=== PATIENT | male | born 1955 | race Caucasian/White ===

== ENCOUNTER 2018-11-19 09:59 | Observation (INO) | payer OTHER, BC ==
--- NOTE | 2018-11-19 10:59 | CR ---
EXAMINATION: Two-view chest (PA and Lateral views). HISTORY: Cough. FINDINGS: The trachea is midline. The cardiomediastinal silhouette is within normal limits. No pulmonary infiltrates, effusions or pneumothorax. There is a 6 mm nodule projecting over the right upper lobe. Osseous structures appear unremarkable. IMPRESSION: 1. No acute cardiopulmonary process. 2. There is a 6 mm nodule projecting over the right upper lobe. Follow-up with a noncontrast CT may be beneficial.
[2018-11-19 11:13] LABS: CHLORIDE,CL 100 mmol/L (98-107); SODIUM,NA 135 mmol/L (136-148)
--- NOTE | 2018-11-19 11:17 | EDM.PDOC ---
ED HPI GENERAL MEDICAL PROBLEM - General Chief Complaint: General Stated Complaint: FLU Time Seen by Provider: 11/19/18 10:09 Source of Information: Reports: Patient History Limitations: Reports: No Limitations - History of Present Illness INITIAL COMMENTS - FREE TEXT/NARRATIVE: HISTORY AND PHYSICAL: History of present illness: Patient is a 63-year-old male with a history of CLL who presents to the ED today with complaints of cough, malaise, intermittent fevers, body aches, and headache x 1 week. Patient has been taking ibuprofen for symptoms. Patient was evaluated in the emergency room on 11/16/18 for these symptoms. At that time a strep, influenza and chest x-ray were done and no significant findings were noted. He was diagnosed with viral illness and supportive care measures were reviewed. He states his symptoms have not resolved. Patient does have a history of type 2 diabetes on medication. He denies any other health history. She denies nausea, vomiting, abdominal pain, pelvic pain, chest pain, orders of breath, difficulties breathing, pain with inspiration, vision changes, diaphoresis, or any other GI, , respiratory, or cardiovascular complaints. Review of systems: As per history of present illness and below otherwise all systems reviewed and negative. Past medical history: As per history of present illness and as reviewed below otherwise noncontributory. Surgical history: As per history of present illness and as reviewed below otherwise noncontributory. Social history: See social history for further information Family history: As per history of present illness and as reviewed below otherwise noncontributory. Physical exam: General: Patient is alert, oriented, and in no acute distress. He is lying comfortably on exam table. HEENT: Atraumatic, normocephalic, pupils equal and reactive bilaterally, negative for conjunctival pallor or scleral icterus, mucous membranes moist, TMs normal bilaterally, throat clear, neck supple, nontender, trachea midline. No drooling or trismus noted. No meningeal signs. No hot potato voice noted. Lungs: Clear to auscultation, breath sounds equal bilaterally, chest nontender. Heart: S1S2, regular rate and rhythm without overt murmur Abdomen: Soft, nondistended, nontender. Negative for masses or hepatosplenomegaly. Negative for costovertebral tenderness. Pelvis: Stable nontender. Genitourinary: Deferred. Rectal: Deferred. Skin: Intact, warm, dry. No lesions or rashes noted. Extremities: Atraumatic, negative for cords or calf pain. Neurovascular unremarkable. Neuro: Awake, alert, oriented. Cranial nerves II through XII unremarkable. Cerebellum unremarkable. Motor and sensory unremarkable throughout. Exam nonfocal. Notes: Diagnosed with CLL about 7-8 months ago. Patient does follow with an Oncologist , Dr Alethea Bowling, for his CLL at [facility] in [place]. He states that he just had an appointment and as follows up every 6 months due to his CLL being stable/in remission. Patient states his white blood cell count runs around 15 normally. His last blood workup was October 17, 2008. Patient states that he has not been taking any treatments for his CLL (as he is in remission) and that it has just been monitored. I did review his last CBC on October 17 which did show a white blood cell count of 15.5. His white blood cell count is significantly elevated today at 32. While obtaining blood cultures patient did threaten to walk out of the ER however, his insisting that he stays. x-ray does show no acute cardiopulmonary process. There is a 6 mm nodule in the right upper lobe, would recommend CT study for further evaluation. CT was ordered while in the ED. Discussed admission with patient and his agree to admission. Consult with Dr. Bueno was made and he is willing to admit patient. Phone Number for Dr Alethea Bowling: . CT of the chest shows a small rounded 5 mm nodule within the right upper lobe, previously measured 3-4 mm. Follow-up is recommended. [facility] Diagnostics: CBC, CMP, UA, blood cultures, CXR Therapeutics: Saline Impression: 1. History of CLL 2. Leukocytosis Plan: 1. Admit for observation Definitive disposition and diagnosis as appropriate pending reevaluation and review of above. Generalized Pain Score (Numeric/FACES): 8 - Related Data Allergies Allergy/AdvReac Type Severity Reaction Status Date / Time Penicillins Allergy Other Verified 11/19/18 10:41 Home Meds: Home Meds Atenolol 1 tab PO DAILY 10/20/14 [History] glyBURIDE [Glyburide] 1 tab PO BID 10/20/14 [History] sitaGLIPtin Phos/Metformin HCl [Janumet 50-500 MG] 1 tab PO BID 10/20/14 [ History] Aspirin 1 tab PO DAILY 11/19/18 [History] Empagliflozin [Jardiance] 1 tab PO DAILY 11/19/18 [History] Omeprazole 1 tab PO DAILY 11/19/18 [History] atorvaSTATin [Lipitor] 1 tab PO BEDTIME 11/19/18 [History] Past Medical History Cardiovascular History: Reports: High Cholesterol, Hypertension Gastrointestinal History: Reports: GERD Endocrine/Metabolic History: Reports: Diabetes, Type II Oncologic (Cancer) History: Reports: Leukemia Other Oncologic History: CLL - Infectious Disease History Infectious Disease History: Reports: Chicken Pox - Past Surgical History Endocrine Surgical History: Reports: None Oncologic Surgical History: Reports: None Social & Family History - Family History Family Medical History: Noncontributory - Tobacco Use Smoking Status *Q: Never Smoker Second Hand Smoke Exposure: No - Caffeine Use Caffeine Use: Reports: Coffee - Recreational Drug Use Recreational Drug Use: No ED ROS GENERAL - Review of Systems Review Of Systems: ROS reveals no pertinent complaints other than HPI. ED EXAM, GENERAL - Physical Exam Exam: See Below (see dictation) Course - Vital Signs Last Recorded V/S: Last Vital Signs Temp 97.9 F 11/19/18 11:45 Pulse 86 11/19/18 11:45 Resp 14 11/19/18 11:45 BP 116/64 11/19/18 11:45 Pulse Ox 95 11/19/18 11:45 - Orders/Labs/Meds Orders: Active Orders 24 hr Category Date Time Status Admission Status [Patient Status] [ADT] Stat ADT 11/19/18 12:14 Active CULTURE BLOOD [BC] Stat Lab 11/19/18 11:14 Received CULTURE BLOOD [BC] Stat Lab 11/19/18 11:14 Received PERIPH BLOOD SMEAR PATHOLOGIST [HEME] Stat Lab 11/19/18 13:00 Ordered UA W/MICROSCOPIC [URIN] Stat Lab 11/19/18 12:20 Ordered Blood Culture x2 Reflex Set [OM.PC] Stat Oth 11/19/18 11:03 Ordered Labs: Laboratory Tests 11/19/18 11/19/18 11/19/18 Range/Units 10:41 10:41 11:42 WBC 32.58 H (4.0-11.0) K/uL RBC 5.24 (4.50-5.90) M/uL Hgb 15.9 (13.0-17.0) g/dL Hct 45.6 (38.0-50.0) % MCV 87.0 (80.0-98.0) fL MCH 30.3 (27.0-32.0) pg MCHC 34.9 (31.0-37.0) g/dL RDW Std Deviation 41.8 (28.0-62.0) fl RDW Coeff of Demian 13 (11.0-15.0) % Plt Count 170 (150-400) K/uL MPV 10.00 (7.40-12.00) fL Add Manual Diff YES Neutrophils % (Manual) 74 (48.0-80.0) % Band Neutrophils % 1 % Lymphocytes % (Manual) 22 (16.0-40.0) % Monocytes % (Manual) 2 (0.0-15.0) % Eosinophils % (Manual) 1 (0.0-7.0) % Nucleated RBC % 0.0 /100WBC Absolute Seg Neuts 24.1 H (1.4-5.7) Band Neutrophils # 0.3 Lymphocytes # (Manual) 7.2 H (0.6-2.4) Monocytes # (Manual) 0.7 (0.0-0.8) Eosinophils # (Manual) 0.3 (0.0-0.7) Nucleated RBCs # 0 K/uL Sodium 135 L (136-148) mmol/L Potassium 4.1 (3.5-5.1) mmol/L Chloride 100 (98-107) mmol/L Carbon Dioxide 25.6 (21.0-32.0) mmol/L BUN 17 (7.0-18.0) mg/dL Creatinine 0.7 L (0.8-1.3) mg/dL Est Cr Clr Drug Dosing 121.63 mL/min Estimated GFR (MDRD) > 60.0 ml/min Glucose 150 H (74-106) mg/dL Calcium 9.7 (8.5-10.1) mg/dL Total Bilirubin 2.3 H (0.2-1.0) mg/dL AST 13 L (15-37) IU/L ALT 32 (14-63) IU/L Alkaline Phosphatase 83 (46-116) U/L Total Protein 8.3 H (6.4-8.2) g/dL Albumin 3.7 (3.4-5.0) g/dL Globulin 4.6 H (2.6-4.0) g/dL Albumin/Globulin Ratio 0.8 L (0.9-1.6) Urine Color YELLOW Urine Appearance CLEAR Urine pH 6.0 (5.0-8.0) Ur Specific [place] 1.020 (1.001-1.035) Urine Protein NEGATIVE (NEGATIVE) mg/dL Urine Glucose (UA) 500 H (NEGATIVE) mg/dL Urine Ketones 40 H (NEGATIVE) mg/dL Urine Occult Blood NEGATIVE (NEGATIVE) Urine Nitrite NEGATIVE (NEGATIVE) Urine Bilirubin NEGATIVE (NEGATIVE) Urine Urobilinogen 0.2 (<2.0) EU/dL Ur Leukocyte Esterase NEGATIVE (NEGATIVE) Meds: Medications Discontinued Medications Generic Name Dose Route Start Last Admin Trade Name Freq PRN Reason Stop Dose Admin Sodium Chloride 1,000 mls @ 999 mls/hr 11/19/18 11:20 11/19/18 11:28 Normal Saline IV 11/19/18 12:20 999 mls/hr STAT ONE Administration Departure - Departure Time of Disposition: 12:27 Disposition: Refer to Observation Clinical Impression: History of chronic lymphocytic leukemia Leukocytosis Qualifiers: Leukocytosis type: unspecified Qualified Code(s): D72.829 - Elevated white blood cell count, unspecified - Discharge Information Referrals: PCP,Unknown [Primary Care Provider] - Forms: ED Department Discharge - My Orders Last 24 Hours: My Active Orders 11/19/18 11:03 Blood Culture x2 Reflex Set [OM.PC] Stat 11/19/18 11:14 CULTURE BLOOD [BC] Stat CULTURE BLOOD [BC] Stat 11/19/18 12:14 Admission Status [Patient Status] [ADT] Stat - Assessment/Plan Last 24 Hours: My Active Orders 11/19/18 11:03 Blood Culture x2 Reflex Set [OM.PC] Stat 11/19/18 11:14 CULTURE BLOOD [BC] Stat CULTURE BLOOD [BC] Stat 11/19/18 12:14 Admission Status [Patient Status] [ADT] Stat
[2018-11-19] MEDS ORDERED: Sodium Chloride 0.9% 1,000 ML IV ONE (11:20)
--- NOTE | 2018-11-19 12:45 | CT ---
EXAMINATION: CT chest without contrast HISTORY: Follow-up COMPARISON: CT dated 07/31/2018. TECHNIQUE: Axial CT imaging obtained through the chest without contrast. Coronal and sagittal reconstructions obtained. FINDINGS: The lungs are clear without focal consolidation. No pleural effusion or pneumothorax. There is a small 5 mm nodule within the right apex. This appears to have slightly increased in size. There is an additional tiny pleural-based 4 x 2 mm nodule within the right upper lobe along the arch. The heart is normal in size without a pericardial effusion. No mediastinal or axillary lymphadenopathy. No hilar fullness. The central airways are clear. Thoracic aorta is normal in caliber. The visualized images of the upper abdomen are grossly unremarkable. Degenerative changes noted within the lower cervical spine and minimally within the thoracic spine without acute findings. IMPRESSION: 1. No acute cardiopulmonary findings. 2. Small rounded 5 mm nodule within the right upper lobe, previously measuring 3 to 4 mm. Given the slight enlargement a neoplastic process is not excluded, at minimum continued follow-up is recommended.
[2018-11-19] MEDS ORDERED: cefTRIAXone 1 GM in Premix Bag 1 BAG IV SCH (13:45)
--- NOTE | 2018-11-19 13:46 | PCM.HP ---
H&P History of Present Illness - General Date of Service: 11/19/18 Admit Problem/Dx: Admission Diagnosis/Problem Admission Diagnosis/Problem Leukocytosis Source of Information: Patient History Limitations: Reports: No Limitations - History of Present Illness Initial Comments - Free Text/Narative: This 63 year old male with pmh of CLL, HTN and DM Type 2 presented to the ED with concerns of myalgias, sinus headache, mild sore throat, and malaise which started about 1 week ago. He denies no overt fevers, but reports chills and some sweating at home. Reports frontal headache, sinus pain, ear fullness, mild sore throat. No neck pain or nuchal rigidity. No dyspnea or chest pain. Mild RUQ abdominal pain, sharp in nature intermittently. No diarrhea or constipation , no black or bloody BMs. No urinary concerns. He recetly saw his oncologist, Dr Avalos in [place], labwork was good. WBC 15,000. CMP WNL. A1c 8.7. He was scheduled for follow up with her in 6 months, has not received treatment yet for CLL, they monitoring it. In the ED leukocytosis noted at 32,580, bands 1, BMP WNL, Bilirubin noted to be elevated at 2.3, labs in October bili was 0.8. CXR negative for acute cardiopulmonary process, 6 mm nodule noted in R upper lobe. CT of chest obtained which revealed no acute cardiopulmonary process, small rounded nodule 5mm in R upper lobe, previously 3x4 mm, slight enlargement noted. Upper abdomen visualized grossly unremarkable. Influenza swab negative. He will be admitted observation due to leukocytosis. PCP, Dr Valerio Oncology, Dr Avalos Generalized Pain Score (Numeric/FACES): 8 - Related Data Allergies/Adverse Reactions: Allergies Allergy/AdvReac Type Severity Reaction Status Date / Time Penicillins Allergy Other Verified 11/19/18 10:41 Home Medications: Home Meds Atenolol 100 mg PO DAILY 10/20/14 [History] glyBURIDE [Glyburide] 7.5 mg PO BID 10/20/14 [History] sitaGLIPtin Phos/Metformin HCl [Janumet 50-500 MG] 50 - 1,000 mg PO BID [History] Aspirin 81 mg PO DAILY 11/19/18 [History] Empagliflozin [Jardiance] 25 mg PO DAILY 11/19/18 [History] Empagliflozin [Jardiance] 25 mg PO DAILY@0800 11/19/18 [History] Losartan [Cozaar] 50 mg PO DAILY 11/19/18 [History] Omeprazole 20 mg PO ACBREAKFAST 11/19/18 [History] Past Medical History Cardiovascular History: Reports: High Cholesterol, Hypertension. Denies: Afib, Blood Clots/VTE/DVT Respiratory History: Reports: None. Denies: COPD Gastrointestinal History: Reports: GERD Genitourinary History: Reports: None. Denies: Chronic Renal Insuffiency Endocrine/Metabolic History: Reports: Diabetes, Type II Oncologic (Cancer) History: Reports: Leukemia Other Oncologic History: CLL - Infectious Disease History Infectious Disease History: Reports: Chicken Pox - Past Surgical History Endocrine Surgical History: Reports: None Oncologic Surgical History: Reports: None Social & Family History - Family History Family Medical History: Noncontributory - Tobacco Use Smoking Status *Q: Never Smoker Second Hand Smoke Exposure: No - Caffeine Use Caffeine Use: Reports: Coffee - Alcohol Use Alcohol Use History: No Alcohol Use Frequency: Rarely, Socially - Recreational Drug Use Recreational Drug Use: No - Living Situation & Occupation Living situation: Reports: Occupation: Employed (Graphic Manager) H&P Review of Systems - Review of Systems: Review Of Systems: See Below General: Reports: Chills, Malaise, Fatigue. Denies: Fever HEENT: Reports: Ear Pain (fullness), Headaches (frontal and sinus), Sinus Congestion, Sore Throat. Denies: Visual Changes Pulmonary: Denies: Shortness of Breath, Wheezing, Cough, Sputum Cardiovascular: Reports: No Symptoms. Denies: Chest Pain, Palpitations Gastrointestinal: Reports: Abdominal Pain (RUQ, intermittently). Denies: Black Stool, Bloody Stool, Constipation, Diarrhea, Decreased Appetite, Distension, Nausea, Vomiting Genitourinary: Reports: No Symptoms. Denies: Dysuria, Frequency, Burning, Retention, Flank Pain Musculoskeletal: Reports: No Symptoms. Denies: Neck Pain Skin: Reports: No Symptoms Psychiatric: Reports: No Symptoms Neurological: Reports: No Symptoms. Denies: Confusion Hematologic/Lymphatic: Reports: No Symptoms Immunologic: Reports: No Symptoms Exam - Exam Exam: See Below - Vital Signs Vital Signs: Last Vital Signs Temp 97.9 F 11/19/18 11:45 Pulse 86 11/19/18 11:45 Resp 14 11/19/18 11:45 BP 116/64 11/19/18 11:45 Pulse Ox 95 11/19/18 11:45 Weight: 88.451 kg - Exam General: Alert, Oriented, Cooperative, Other (flushed cheeks) HEENT: Conjunctiva Clear, Mucosa Moist & [place], Nares Patent, Posterior Pharynx Clear (mildly erythematous), Pupils Equal, Pupils Reactive, Other (maxillary and frontal sinus pain with palpation) Neck: Supple, Trachea Midline, Full Range of Motion, Other (no nuchal rigidity noted). No: Lymphadenopathy Lungs: Clear to Auscultation, Normal Respiratory Effort Cardiovascular: Regular Rate, Regular Rhythm, Normal S1, Normal S2. No: Systolic Murmur GI/Abdominal Exam: Normal Bowel Sounds, Soft, Non-Tender, No Organomegaly, No Mass Back Exam: Normal Inspection, Full Range of Motion. No: CVA Tenderness (L), CVA Tenderness (R) Extremities: Normal Inspection, Normal Range of Motion, Non-Tender, No Pedal Edema Neuro Extensive - Mental Status: Alert, Oriented x3 Neuro Extensive - Motor, Sensory, Reflexes: CN II-XII Intact Psychiatric: Alert, Normal Affect, Normal Mood - Patient Data Lab Results Last 24 hrs: Laboratory Results - last 24 hr 11/19/18 11/19/18 11/19/18 Range/Units 10:41 10:41 10:41 WBC 32.58 H (4.0-11.0) K/uL RBC 5.24 (4.50-5.90) M/uL Hgb 15.9 (13.0-17.0) g/dL Hct 45.6 (38.0-50.0) % MCV 87.0 (80.0-98.0) fL MCH 30.3 (27.0-32.0) pg MCHC 34.9 (31.0-37.0) g/dL RDW Std Deviation 41.8 (28.0-62.0) fl RDW Coeff of Demian 13 (11.0-15.0) % Plt Count 170 (150-400) K/uL MPV 10.00 (7.40-12.00) fL Add Manual Diff YES Neutrophils % (Manual) 74 (48.0-80.0) % Band Neutrophils % 1 % Lymphocytes % (Manual) 22 (16.0-40.0) % Monocytes % (Manual) 2 (0.0-15.0) % Eosinophils % (Manual) 1 (0.0-7.0) % Nucleated RBC % 0.0 /100WBC Absolute Seg Neuts 24.1 H (1.4-5.7) Band Neutrophils # 0.3 Lymphocytes # (Manual) 7.2 H (0.6-2.4) Monocytes # (Manual) 0.7 (0.0-0.8) Eosinophils # (Manual) 0.3 (0.0-0.7) Nucleated RBCs # 0 K/uL Smear Path Review SENT TO PATHOLOGY Sodium 135 L (136-148) mmol/L Potassium 4.1 (3.5-5.1) mmol/L Chloride 100 (98-107) mmol/L Carbon Dioxide 25.6 (21.0-32.0) mmol/L BUN 17 (7.0-18.0) mg/dL Creatinine 0.7 L (0.8-1.3) mg/dL Est Cr Clr Drug Dosing 121.63 mL/min Estimated GFR (MDRD) > 60.0 ml/min Glucose 150 H (74-106) mg/dL Calcium 9.7 (8.5-10.1) mg/dL Total Bilirubin 2.3 H (0.2-1.0) mg/dL AST 13 L (15-37) IU/L ALT 32 (14-63) IU/L Alkaline Phosphatase 83 (46-116) U/L Total Protein 8.3 H (6.4-8.2) g/dL Albumin 3.7 (3.4-5.0) g/dL Globulin 4.6 H (2.6-4.0) g/dL Albumin/Globulin Ratio 0.8 L (0.9-1.6) Urine Color Urine Appearance Urine pH (5.0-8.0) Ur Specific [place] (1.001-1.035) Urine Protein (NEGATIVE) mg/dL Urine Glucose (UA) (NEGATIVE) mg/dL Urine Ketones (NEGATIVE) mg/dL Urine Occult Blood (NEGATIVE) Urine Nitrite (NEGATIVE) Urine Bilirubin (NEGATIVE) Urine Urobilinogen (<2.0) EU/dL Ur Leukocyte Esterase (NEGATIVE) 11/19/18 Range/Units 11:42 WBC (4.0-11.0) K/uL RBC (4.50-5.90) M/uL Hgb (13.0-17.0) g/dL Hct (38.0-50.0) % MCV (80.0-98.0) fL MCH (27.0-32.0) pg MCHC (31.0-37.0) g/dL RDW Std Deviation (28.0-62.0) fl RDW Coeff of Demian (11.0-15.0) % Plt Count (150-400) K/uL MPV (7.40-12.00) fL Add Manual Diff Neutrophils % (Manual) (48.0-80.0) % Band Neutrophils % % Lymphocytes % (Manual) (16.0-40.0) % Monocytes % (Manual) (0.0-15.0) % Eosinophils % (Manual) (0.0-7.0) % Nucleated RBC % /100WBC Absolute Seg Neuts (1.4-5.7) Band Neutrophils # Lymphocytes # (Manual) (0.6-2.4) Monocytes # (Manual) (0.0-0.8) Eosinophils # (Manual) (0.0-0.7) Nucleated RBCs # K/uL Smear Path Review Sodium (136-148) mmol/L Potassium (3.5-5.1) mmol/L Chloride (98-107) mmol/L Carbon Dioxide (21.0-32.0) mmol/L BUN (7.0-18.0) mg/dL Creatinine (0.8-1.3) mg/dL Est Cr Clr Drug Dosing mL/min Estimated GFR (MDRD) ml/min Glucose (74-106) mg/dL Calcium (8.5-10.1) mg/dL Total Bilirubin (0.2-1.0) mg/dL AST (15-37) IU/L ALT (14-63) IU/L Alkaline Phosphatase (46-116) U/L Total Protein (6.4-8.2) g/dL Albumin (3.4-5.0) g/dL Globulin (2.6-4.0) g/dL Albumin/Globulin Ratio (0.9-1.6) Urine Color YELLOW Urine Appearance CLEAR Urine pH 6.0 (5.0-8.0) Ur Specific [place] 1.020 (1.001-1.035) Urine Protein NEGATIVE (NEGATIVE) mg/dL Urine Glucose (UA) 500 H (NEGATIVE) mg/dL Urine Ketones 40 H (NEGATIVE) mg/dL Urine Occult Blood NEGATIVE (NEGATIVE) Urine Nitrite NEGATIVE (NEGATIVE) Urine Bilirubin NEGATIVE (NEGATIVE) Urine Urobilinogen 0.2 (<2.0) EU/dL Ur Leukocyte Esterase NEGATIVE (NEGATIVE) Result Diagrams: 11/19/18 10:41 11/19/18 10:41 Chele Results Last 24 hrs: Microbiology 11/19/18 10:20 Influenza Type A Antigen Screen - Final Nasopharyngeal Swab NEGATIVE INFLUENZA A VIRUS AG Influenza Type B Antigen Screen - Final NEGATIVE INFLUENZA B VIRUS AG *Q Meaningful Use (ADM) - VTE Risk Assess *Q Each Risk Factor Represents 1 Point: None Total Score 1 Point Risk Factors: 0 Each Risk Factor Represents 2 Points: Age 60 - 74 Years, Malignancy (present or previous) Total Score 2 Point Risk Factors: 4 Each Risk Factor Represents 3 Points: None Total Score 3 Point Risk Factors: 0 Each Risk Factor Represents 5 Points: None Total Score 5 Point Risk Factors: 0 Venous Thromboembolism Risk Factor Score *Q: 4 - Problem List (1) Leukocytosis SNOMED Code(s): 340229018, 663955289 ICD Code: D72.829 - ELEVATED WHITE BLOOD CELL COUNT, UNSPECIFIED Status: Acute Current Visit: Yes Qualifiers: Leukocytosis type: unspecified Qualified Code(s): D72.829 - Elevated white blood cell count, unspecified (2) HTN (hypertension) SNOMED Code(s): 55440316 ICD Code: I10 - ESSENTIAL (PRIMARY) HYPERTENSION Status: Chronic Current Visit: Yes Qualifiers: Hypertension type: essential hypertension Qualified Code(s): I10 - Essential (primary) hypertension (3) DM type 2 (diabetes mellitus, type 2) SNOMED Code(s): 27356242 ICD Code: E11.9 - TYPE 2 DIABETES MELLITUS WITHOUT COMPLICATIONS Status: Chronic Current Visit: Yes 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 Diabetes mellitus complication status: without complication Qualified Code(s): E11.9 - Type 2 diabetes mellitus without complications (4) History of chronic lymphocytic leukemia SNOMED Code(s): 54641613625596, 02559237668116 ICD Code: Z85.6 - PERSONAL HISTORY OF LEUKEMIA Status: Chronic Current Visit: Yes (5) Elevated bilirubin SNOMED Code(s): 254050635 ICD Code: R17 - UNSPECIFIED JAUNDICE Status: Acute Current Visit: Yes Problem List Initiated/Reviewed/Updated: Yes Orders Last 24hrs: Active Orders 24 hr Category Date Time Status Admission Status [Patient Status] [ADT] Stat ADT 11/19/18 12:14 Active Abdomen Comp [US] Stat Exams 11/19/18 13:38 Ordered CULTURE BLOOD [BC] Stat Lab 11/19/18 11:14 Received CULTURE BLOOD [BC] Stat Lab 11/19/18 11:14 Received UA W/MICROSCOPIC [URIN] Stat Lab 11/19/18 12:20 Ordered Oseltamivir [Tamiflu] Med 11/19/18 13:45 Ordered 75 mg PO BID Sodium Chloride 0.9% @ 125 MLS/HR (1,000ml) Med 11/19/18 13:45 Ordered Sodium Chloride 0.9% [Normal Saline] 1,000 ml IV ASDIRECTED cefTRIAXone [Rocephin in Dextrose,Iso-Osm 1 GM/50 ML] 1 Med 11/19/18 13:45 Ordered gm Premix Bag 1 bag IV Q24H Blood Culture x2 Reflex Set [OM.PC] Stat Oth 11/19/18 11:03 Ordered Medication Orders Ceftriaxone Sodium/Dextrose 1 (gm/ Premix) 50 mls @ 100 mls/hr IV Q24H YRIS Sodium Chloride (Normal Saline) 1,000 mls @ 125 mls/hr IV ASDIRECTED YRIS Oseltamivir Phosphate (Tamiflu) 75 mg PO BID YRIS Assessment/Plan Comment:: This 63 year old male admitted with leukocytosis and myalgias, hx of CLL 1. Leukocytosis: Peripheral blood smear obtained and pending. Will speak with Dr Avalos, Oncologist regarding labwork and admission. pending. Influenza negative, but due to symptoms consider false negative and will treat with Tamiflu 75 mg BID. Cover with Cefepime per recommendations of Dr Miguel 2. Elevated bilirubin: 1 month ago, bili was 2.3. Will obtained Liver US. 3. Htn: Stable. Continue Losartan and Atenolol 4. DM TYpe 2: TIDAC BS, Novolog SSI. Holding PO medications. VTE prophylaxis: Lovenox. Dispo: 1-2 days pending improvement. Spoke with Dr Miguel, Dr avalos is unavailable. We discussed lab findings, he is suspicious this is morning infectious in nature and would cover her with broad spectrum antibiotics for 2 days. Obtain BC and monitor. Agrees with U/S to evaluate bilirubin elevation. recommended Cefepime vs Rocephin.
[2018-11-19] MEDS ORDERED: Ondansetron 4 MG/2 ML SDV IVPUSH PRN (13:53)
[2018-11-19] MEDS ORDERED: Acetaminophen 325 MG Tab PO PRN (13:53)
[2018-11-19] MEDS: Sodium Chloride 0.9% 1,000 ML IV SCH ×2 (13:54→22:28)
[2018-11-19] MEDS: Oseltamivir 75 MG Cap PO SCH ×2 (13:54→20:37)
[2018-11-19] MEDS: Enoxaparin 40 MG/0.4 ML Syringe SUBCUT SCH (16:21)
[2018-11-19] MEDS: Cefepime 1 GM in Premix Bag 1 BAG IV SCH ×2 (16:22→22:30)
[2018-11-19] MEDS: Ibuprofen 400 MG Tab PO PRN ×2 (16:36→21:49)
[2018-11-19] MEDS: Insulin Aspart 100 Units/ML 3 ML Pen SUBCUT SCH (17:47)
[2018-11-20 06:03] LABS: CHLORIDE,CL 107 mmol/L (98-107); SODIUM,NA 139 mmol/L (136-148)
[2018-11-20] MEDS: Sodium Chloride 0.9% 1,000 ML IV SCH (06:52)
[2018-11-20] MEDS: Cefepime 1 GM in Premix Bag 1 BAG IV SCH ×2 (06:52→16:10)
[2018-11-20] MEDS: Insulin Aspart 100 Units/ML 3 ML Pen SUBCUT SCH ×3 (08:35→18:20)
[2018-11-20] MEDS: Omeprazole 20 MG Cap.CR PO SCH (08:42)
[2018-11-20] MEDS: Aspirin 81 MG Tab.Chew PO SCH (08:42)
[2018-11-20] MEDS: Oseltamivir 75 MG Cap PO SCH ×2 (08:42→20:08)
--- NOTE | 2018-11-20 08:48 | US ---
EXAMINATION: Abdominal ultrasound HISTORY: Elevated bilirubin COMPARISON: CT dated 07/26/2018 TECHNIQUE: Grayscale and color Doppler imaging obtained of the right upper quadrant. FINDINGS: The visualized pancreas appears normal. Gallbladder wall thickness is normal. No pericholecystic fluid or shadowing gallstones. The liver is mildly increased in generalized echotexture without a focal hepatic mass. The visualized IVC and aorta are normal. The spleen appears unremarkable. The right kidney measures at least 13.9 cm and the left kidney measures at least 14.8 cm [id number] without evidence of hydronephrosis. Prominent dromedary Rush noted within the left kidney. No abnormal color Doppler flow. No abdominal ascites. Common bile duct measures 2 mm. IMPRESSION: 1. Mild fatty infiltration of the liver. 2. Otherwise no acute findings noted within the abdomen.
[2018-11-20] MEDS ORDERED: Losartan 50 MG Tab PO SCH (09:00)
[2018-11-20] MEDS ORDERED: Atenolol 50 MG Tab PO SCH (09:00)
--- NOTE | 2018-11-20 09:27 | PCM.PN ---
- General Info Date of Service: 11/20/18 Admission Dx/Problem (Free Text): Admission Diagnosis/Problem Admission Diagnosis/Problem Leukocytosis Subjective Update: Tired, did not sleep well overnight. Headache is improved, still slightly there , frontal. No neck pain. Overall is feeling much better. No fevers Functional Status: Reports: Pain Controlled, Tolerating Diet, Ambulating, Urinating - Review of Systems General: Reports: No Symptoms. Denies: Fever, Malaise HEENT: Reports: Headaches (frontal). Denies: Sore Throat, Visual Changes Pulmonary: Reports: No Symptoms. Denies: Shortness of Breath, Cough, Sputum Cardiovascular: Reports: No Symptoms. Denies: Chest Pain Gastrointestinal: Reports: No Symptoms. Denies: Abdominal Pain, Nausea, Vomiting Genitourinary: Reports: No Symptoms. Denies: Dysuria, Frequency, Burning Musculoskeletal: Reports: No Symptoms Skin: Reports: No Symptoms Neurological: Reports: No Symptoms Psychiatric: Reports: No Symptoms - Patient Data Vitals - Most Recent: Last Vital Signs Temp 97.8 F 11/20/18 08:36 Pulse 77 11/20/18 08:36 Resp 18 11/20/18 08:36 BP 139/68 11/20/18 08:36 Pulse Ox 96 11/20/18 08:36 Weight - Most Recent: 88.723 kg I&O - Last 24 Hours: Intake & Output 11/19/18 11/20/18 11/20/18 22:59 06:59 14:59 Intake Total 100 Output Total 1600 Balance 100 -1600 Lab Results Last 24 Hours: Laboratory Results - last 24 hr 11/19/18 11/19/18 11/19/18 Range/Units 10:41 10:41 10:41 WBC 32.58 H (4.0-11.0) K/uL RBC 5.24 (4.50-5.90) M/uL Hgb 15.9 (13.0-17.0) g/dL Hct 45.6 (38.0-50.0) % MCV 87.0 (80.0-98.0) fL MCH 30.3 (27.0-32.0) pg MCHC 34.9 (31.0-37.0) g/dL RDW Std Deviation 41.8 (28.0-62.0) fl RDW Coeff of Demian 13 (11.0-15.0) % Plt Count 170 (150-400) K/uL MPV 10.00 (7.40-12.00) fL Neut % (Auto) (48.0-80.0) % Lymph % (Auto) (16.0-40.0) % [place] % (Auto) (0.0-15.0) % Eos % (Auto) (0.0-7.0) % Baso % (Auto) (0.0-1.5) % Neut # (Auto) (1.4-5.7) K/uL Lymph # (Auto) (0.6-2.4) K/uL [place] # (Auto) (0.0-0.8) K/uL Eos # (Auto) (0.0-0.7) K/uL Baso # (Auto) (0.0-0.1) K/uL Add Manual Diff YES Neutrophils % (Manual) 74 (48.0-80.0) % Band Neutrophils % 1 % Lymphocytes % (Manual) 22 (16.0-40.0) % Monocytes % (Manual) 2 (0.0-15.0) % Eosinophils % (Manual) 1 (0.0-7.0) % Nucleated RBC % 0.0 /100WBC Absolute Seg Neuts 24.1 H (1.4-5.7) Band Neutrophils # 0.3 Lymphocytes # (Manual) 7.2 H (0.6-2.4) Monocytes # (Manual) 0.7 (0.0-0.8) Eosinophils # (Manual) 0.3 (0.0-0.7) Nucleated RBCs # 0 K/uL Smear Path Review SENT TO PATHOLOGY Sodium 135 L (136-148) mmol/L Potassium 4.1 (3.5-5.1) mmol/L Chloride 100 (98-107) mmol/L Carbon Dioxide 25.6 (21.0-32.0) mmol/L BUN 17 (7.0-18.0) mg/dL Creatinine 0.7 L (0.8-1.3) mg/dL Est Cr Clr Drug Dosing 121.63 mL/min Estimated GFR (MDRD) > 60.0 ml/min Glucose 150 H (74-106) mg/dL POC Glucose (60-110) mg/dL Calcium 9.7 (8.5-10.1) mg/dL Total Bilirubin 2.3 H (0.2-1.0) mg/dL AST 13 L (15-37) IU/L ALT 32 (14-63) IU/L Alkaline Phosphatase 83 (46-116) U/L Total Protein 8.3 H (6.4-8.2) g/dL Albumin 3.7 (3.4-5.0) g/dL Globulin 4.6 H (2.6-4.0) g/dL Albumin/Globulin Ratio 0.8 L (0.9-1.6) Urine Color Urine Appearance Urine pH (5.0-8.0) Ur Specific [place] (1.001-1.035) Urine Protein (NEGATIVE) mg/dL Urine Glucose (UA) (NEGATIVE) mg/dL Urine Ketones (NEGATIVE) mg/dL Urine Occult Blood (NEGATIVE) Urine Nitrite (NEGATIVE) Urine Bilirubin (NEGATIVE) Urine Urobilinogen (<2.0) EU/dL Ur Leukocyte Esterase (NEGATIVE) Urine RBC (0-2/HPF) Urine WBC (0-5/HPF) Ur Epithelial Cells (NONE-FEW) Urine Bacteria (NEGATIVE) 11/19/18 11/19/18 11/20/18 Range/Units 11:42 17:43 05:05 WBC 21.01 H (4.0-11.0) K/uL RBC 4.85 (4.50-5.90) M/uL Hgb 14.5 (13.0-17.0) g/dL Hct 42.7 (38.0-50.0) % MCV 88.0 (80.0-98.0) fL MCH 29.9 (27.0-32.0) pg MCHC 34.0 (31.0-37.0) g/dL RDW Std Deviation 42.5 (28.0-62.0) fl RDW Coeff of Demian 13 (11.0-15.0) % Plt Count 160 (150-400) K/uL MPV 10.20 (7.40-12.00) fL Neut % (Auto) 48.8 (48.0-80.0) % Lymph % (Auto) 41.2 H (16.0-40.0) % [place] % (Auto) 7.7 (0.0-15.0) % Eos % (Auto) 2.0 (0.0-7.0) % Baso % (Auto) 0.3 (0.0-1.5) % Neut # (Auto) 10.2 H (1.4-5.7) K/uL Lymph # (Auto) 8.7 H (0.6-2.4) K/uL [place] # (Auto) 1.6 H (0.0-0.8) K/uL Eos # (Auto) 0.4 (0.0-0.7) K/uL Baso # (Auto) 0.1 (0.0-0.1) K/uL Add Manual Diff Neutrophils % (Manual) (48.0-80.0) % Band Neutrophils % % Lymphocytes % (Manual) (16.0-40.0) % Monocytes % (Manual) (0.0-15.0) % Eosinophils % (Manual) (0.0-7.0) % Nucleated RBC % 0.0 /100WBC Absolute Seg Neuts (1.4-5.7) Band Neutrophils # Lymphocytes # (Manual) (0.6-2.4) Monocytes # (Manual) (0.0-0.8) Eosinophils # (Manual) (0.0-0.7) Nucleated RBCs # 0 K/uL Smear Path Review Sodium (136-148) mmol/L Potassium (3.5-5.1) mmol/L Chloride (98-107) mmol/L Carbon Dioxide (21.0-32.0) mmol/L BUN (7.0-18.0) mg/dL Creatinine (0.8-1.3) mg/dL Est Cr Clr Drug Dosing mL/min Estimated GFR (MDRD) ml/min Glucose (74-106) mg/dL POC Glucose 101 (60-110) mg/dL Calcium (8.5-10.1) mg/dL Total Bilirubin (0.2-1.0) mg/dL AST (15-37) IU/L ALT (14-63) IU/L Alkaline Phosphatase (46-116) U/L Total Protein (6.4-8.2) g/dL Albumin (3.4-5.0) g/dL Globulin (2.6-4.0) g/dL Albumin/Globulin Ratio (0.9-1.6) Urine Color YELLOW Urine Appearance CLEAR Urine pH 6.0 (5.0-8.0) Ur Specific [place] 1.020 (1.001-1.035) Urine Protein NEGATIVE (NEGATIVE) mg/dL Urine Glucose (UA) 500 H (NEGATIVE) mg/dL Urine Ketones 40 H (NEGATIVE) mg/dL Urine Occult Blood NEGATIVE (NEGATIVE) Urine Nitrite NEGATIVE (NEGATIVE) Urine Bilirubin NEGATIVE (NEGATIVE) Urine Urobilinogen 0.2 (<2.0) EU/dL Ur Leukocyte Esterase NEGATIVE (NEGATIVE) Urine RBC 0-1 (0-2/HPF) Urine WBC 0-1 (0-5/HPF) Ur Epithelial Cells RARE (NONE-FEW) Urine Bacteria RARE (NEGATIVE) 11/20/18 11/20/18 11/20/18 Range/Units 05:05 06:28 08:26 WBC (4.0-11.0) K/uL RBC (4.50-5.90) M/uL Hgb (13.0-17.0) g/dL Hct (38.0-50.0) % MCV (80.0-98.0) fL MCH (27.0-32.0) pg MCHC (31.0-37.0) g/dL RDW Std Deviation (28.0-62.0) fl RDW Coeff of Demian (11.0-15.0) % Plt Count (150-400) K/uL MPV (7.40-12.00) fL Neut % (Auto) (48.0-80.0) % Lymph % (Auto) (16.0-40.0) % [place] % (Auto) (0.0-15.0) % Eos % (Auto) (0.0-7.0) % Baso % (Auto) (0.0-1.5) % Neut # (Auto) (1.4-5.7) K/uL Lymph # (Auto) (0.6-2.4) K/uL [place] # (Auto) (0.0-0.8) K/uL Eos # (Auto) (0.0-0.7) K/uL Baso # (Auto) (0.0-0.1) K/uL Add Manual Diff Neutrophils % (Manual) (48.0-80.0) % Band Neutrophils % % Lymphocytes % (Manual) (16.0-40.0) % Monocytes % (Manual) (0.0-15.0) % Eosinophils % (Manual) (0.0-7.0) % Nucleated RBC % /100WBC Absolute Seg Neuts (1.4-5.7) Band Neutrophils # Lymphocytes # (Manual) (0.6-2.4) Monocytes # (Manual) (0.0-0.8) Eosinophils # (Manual) (0.0-0.7) Nucleated RBCs # K/uL Smear Path Review Sodium 139 (136-148) mmol/L Potassium 4.0 (3.5-5.1) mmol/L Chloride 107 (98-107) mmol/L Carbon Dioxide 25.4 (21.0-32.0) mmol/L BUN 18 (7.0-18.0) mg/dL Creatinine 0.6 L (0.8-1.3) mg/dL Est Cr Clr Drug Dosing TNP mL/min Estimated GFR (MDRD) > 60.0 ml/min Glucose 166 H (74-106) mg/dL POC Glucose 157 H 137 H (60-110) mg/dL Calcium 8.6 (8.5-10.1) mg/dL Total Bilirubin 0.8 (0.2-1.0) mg/dL AST 13 L (15-37) IU/L ALT 24 (14-63) IU/L Alkaline Phosphatase 72 (46-116) U/L Total Protein 7.0 (6.4-8.2) g/dL Albumin 2.9 L (3.4-5.0) g/dL Globulin 4.1 H (2.6-4.0) g/dL Albumin/Globulin Ratio 0.7 L (0.9-1.6) Urine Color Urine Appearance Urine pH (5.0-8.0) Ur Specific [place] (1.001-1.035) Urine Protein (NEGATIVE) mg/dL Urine Glucose (UA) (NEGATIVE) mg/dL Urine Ketones (NEGATIVE) mg/dL Urine Occult Blood (NEGATIVE) Urine Nitrite (NEGATIVE) Urine Bilirubin (NEGATIVE) Urine Urobilinogen (<2.0) EU/dL Ur Leukocyte Esterase (NEGATIVE) Urine RBC (0-2/HPF) Urine WBC (0-5/HPF) Ur Epithelial Cells (NONE-FEW) Urine Bacteria (NEGATIVE) Chele Results Last 24 Hours: Microbiology 11/19/18 10:20 Influenza Type A Antigen Screen - Final Nasopharyngeal Swab NEGATIVE INFLUENZA A VIRUS AG Influenza Type B Antigen Screen - Final NEGATIVE INFLUENZA B VIRUS AG Med Orders - Current: Current Medications Acetaminophen (Tylenol) 650 mg PO Q4H PRN PRN Reason: Pain Aspirin (Aspirin) 81 mg PO DAILY [facility] Last Admin: 11/20/18 08:42 Dose: 81 mg Enoxaparin Sodium (Lovenox) 40 mg SUBCUT Q24H [facility] Last Admin: 11/19/18 16:21 Dose: 40 mg Sodium Chloride (Normal Saline) 1,000 mls @ 125 mls/hr IV ASDIRECTED [facility] Last Admin: 11/20/18 06:52 Dose: 125 mls/hr Cefepime HCl 1 gm/ Premix 50 mls @ 100 mls/hr IV Q8H [facility] Last Admin: 11/20/18 06:52 Dose: 100 mls/hr Ibuprofen (Motrin) 400 mg PO Q6H PRN PRN Reason: Headache Last Admin: 11/19/18 21:49 Dose: 400 mg Insulin Aspart (Novolog) 0 unit SUBCUT TIDAC [facility]; Protocol Last Admin: 11/20/18 08:35 Dose: Not Given Omeprazole (Omeprazole) 20 mg PO ACBREAKFAST [facility] Last Admin: 11/20/18 08:42 Dose: 20 mg Ondansetron HCl (Zofran) 4 mg IVPUSH Q4H PRN PRN Reason: Nausea Oseltamivir Phosphate (Tamiflu) 75 mg PO BID [facility] Last Admin: 11/20/18 08:42 Dose: 75 mg Discontinued Medications Atenolol (Tenormin) 100 mg PO DAILY [facility] Sodium Chloride (Normal Saline) 1,000 mls @ 999 mls/hr IV STAT ONE Stop: 11/19/18 12:20 Last Admin: 11/19/18 11:28 Dose: 999 mls/hr Ceftriaxone Sodium/Dextrose 1 (gm/ Premix) 50 mls @ 100 mls/hr IV Q24H [facility] Last Admin: 11/19/18 13:54 Dose: 100 mls/hr Losartan Potassium (Cozaar) 50 mg PO DAILY [facility] - Exam General: Alert, Oriented, Cooperative, No Acute Distress HEENT: Pupils Equal, Pupils Reactive, Mucous Membr. Moist/[place] Neck: Supple. No: Lymphadenopathy Lungs: Clear to Auscultation, Normal Respiratory Effort Cardiovascular: Regular Rate, Regular Rhythm GI/Abdominal Exam: Normal Bowel Sounds, Soft, Non-Tender Back Exam: Normal Inspection, Full Range of Motion Extremities: Normal Inspection, Normal Range of Motion, Non-Tender, No Pedal Edema Neurological: No New Focal Deficit Psy/Mental Status: Alert, Normal Affect, Normal Mood - Problem List & Annotations (1) Leukocytosis SNOMED Code(s): 283488367, 869354662 Code(s): D72.829 - ELEVATED WHITE BLOOD CELL COUNT, UNSPECIFIED Status: Acute Current Visit: Yes Qualifiers: Leukocytosis type: unspecified Qualified Code(s): D72.829 - Elevated white blood cell count, unspecified (2) HTN (hypertension) SNOMED Code(s): 61602892 Code(s): I10 - ESSENTIAL (PRIMARY) HYPERTENSION Status: Chronic Current Visit: Yes Qualifiers: Hypertension type: essential hypertension Qualified Code(s): I10 - Essential (primary) hypertension (3) DM type 2 (diabetes mellitus, type 2) SNOMED Code(s): 40731563 Code(s): E11.9 - TYPE 2 DIABETES MELLITUS WITHOUT COMPLICATIONS Status: Chronic Current Visit: Yes Qualifiers: Diabetes mellitus custodial insulin use: without custodial use Diabetes mellitus complication status: without complication Qualified Code(s): E11.9 - Type 2 diabetes mellitus without complications (4) History of chronic lymphocytic leukemia SNOMED Code(s): 04950820449084, 75986053092675 Code(s): Z85.6 - PERSONAL HISTORY OF LEUKEMIA Status: Chronic Current Visit: Yes (5) Elevated bilirubin SNOMED Code(s): 271178541 Code(s): R17 - UNSPECIFIED JAUNDICE Status: Acute Current Visit: Yes - Problem List Review Problem List Initiated/Reviewed/Updated: Yes - My Orders Last 24 Hours: My Active Orders 11/19/18 13:45 Oseltamivir [Tamiflu] 75 mg PO BID Sodium Chloride 0.9% [Normal Saline] 1,000 ml IV ASDIRECTED 11/19/18 13:53 Intake and Output [RC] QSHIFT Oxygen Therapy [RC] PRN Up ad Rosanna [RC] ASDIRECTED Vital Signs [RC] Q4H Acetaminophen [Tylenol] 650 mg PO Q4H PRN Ondansetron [Zofran] 4 mg IVPUSH Q4H PRN Resuscitation Status Routine 11/19/18 13:55 Blood Glucose Check, Bedside [RC] TIDAC 11/19/18 14:00 Enoxaparin [Lovenox] 40 mg SUBCUT Q24H 11/19/18 15:30 Cefepime [Maxipime in D5W 1 GM/50 ML] 1 gm Premix Bag 1 bag IV Q8H 11/19/18 16:22 Ibuprofen [Motrin] 400 mg PO Q6H PRN 11/19/18 17:00 Insulin Aspart [NovoLOG] See Protocol SUBCUT TIDA 11/20/18 07:30 Omeprazole 20 mg PO ACBREAKFAST 11/20/18 09:00 Aspirin 81 mg PO DAILY 11/20/18 Breakfast ADA Diabetic [[place] [employer] Diet] [DIET] - Plan Plan:: This 63 year old male admitted with leukocytosis and myalgias, hx of CLL 1. Leukocytosis: Peripheral blood smear obtained and pending. BC pending. Influenza negative, but due to symptoms consider false negative and will treat with Tamiflu 75 mg BID. Cover with Cefepime per recommendations of Dr Miguel. Likely DC tomorrow if cultures negative. Would send home with antiobitics to treat sinusitis. 2. Elevated bilirubin: 1 month ago, bili was 2.3. Will obtained Liver US. 3. Htn: Stable. Continue Losartan and Atenolol 4. DM TYpe 2: TIDAC BS, Novolog SSI. Holding PO medications. VTE prophylaxis: Lovenox. Dispo: likely home in am if cultures negative.
[2018-11-20] MEDS: Ibuprofen 400 MG Tab PO PRN ×2 (10:51→17:00)
[2018-11-20] MEDS: Enoxaparin 40 MG/0.4 ML Syringe SUBCUT SCH (14:23)
[2018-11-21] MEDS: Cefepime 1 GM in Premix Bag 1 BAG IV SCH ×2 (00:03→08:15)
[2018-11-21 07:42] LABS: CHLORIDE,CL 102 mmol/L (98-107); SODIUM,NA 136 mmol/L (136-148)
[2018-11-21] MEDS: Oseltamivir 75 MG Cap PO SCH (08:15)
[2018-11-21] MEDS: Omeprazole 20 MG Cap.CR PO SCH (08:15)
[2018-11-21] MEDS: Aspirin 81 MG Tab.Chew PO SCH (08:15)
[2018-11-21] MEDS: Insulin Aspart 100 Units/ML 3 ML Pen SUBCUT SCH ×2 (08:15→11:58)
[2018-11-21 08:55] VITALS: BP 122/58
--- NOTE | 2018-11-21 11:38 | PCM.DCSUM1 ---
<Martin Nunez Z - Last Filed: 11/21/18 11:33> Discharge Summary - Hospital Course HPI Initial Comments: Discharge Summary Date of admission: 11/19/18 Date of discharge: 11/21/18 Admitting diagnosis: #1. Leukocytosis and myalgias #2. Sinusitis #3. History of CLL Discharge diagnoses: #1. Leukocytosis stable #2. Influenza treatment Consultations: None Procedures: None Hospitalization course: Patient was admitted and due to his elevated leukocytosis that did appear to be neutrophilic in nature the initial thought was that this is likely not an exacerbation of his CLL, his oncologist was spoken to and the recommendation was to cover her as if this is a neutropenic fever and the patient was placed on cefepime for coverage. Although influenza was negative due to his presenting symptoms and past medical history of CLL decision was made to treat the patient with Tamiflu at the treatment doses 75mg BID. Patient's blood cultures came back negative and as the patient was stable on room air and was doing well on date of discharge decision was made to discharge the patient home. Patient was discharged home with Tamiflu for another 3 more days, Ceftin ear 300 mg twice a day for 7 days for his acute rhinosinusitis along with Flonase. Patient to follow-up with PCP and oncologist in an outpatient setting. Diagnosis: Stroke: No - Discharge Data Discharge Date: 11/21/18 Discharge Disposition: Home, Self-Care 01 Condition: Stable - Patient Instructions Diet: Usual Diet as Tolerated Activity: As Tolerated Driving: Do Not Drive Showering/Bathing: May Shower Notify Provider of: Fever, Increased Pain, Swelling and Redness, Drainage, Nausea and/or Vomiting - Discharge Plan Prescriptions/Med Rec: Cefdinir 300 mg PO BID 7 Days #14 capsule Fluticasone Propionate [Flonase] 16 gm NS DAILY 30 Days #1 bottle Oseltamivir [Tamiflu] 75 mg PO BID 3 Days #6 cap Home Medications: Home Meds Atenolol 100 mg PO BEDTIME 10/20/14 [History] glyBURIDE [Glyburide] 7.5 mg PO BID 10/20/14 [History] sitaGLIPtin Phos/Metformin HCl [Janumet 50-500 MG] 50 - 1,000 mg PO BID [History] Aspirin 81 mg PO DAILY 11/19/18 [History] Empagliflozin [Jardiance] 25 mg PO DAILY 11/19/18 [History] Losartan [Cozaar] 50 mg PO DAILY 11/19/18 [History] Omeprazole 20 mg PO ACBREAKFAST 11/19/18 [History] Cefdinir 300 mg PO BID 7 Days #14 capsule 11/21/18 [Rx] Fluticasone Propionate [Flonase] 16 gm NS DAILY 30 Days #1 bottle 11/21/18 [Rx] Oseltamivir [Tamiflu] 75 mg PO BID 3 Days #6 cap 11/21/18 [Rx] Oxygen Therapy Mode: Room Air Patient Handouts: Cefdinir capsules, Leukocytosis, Fluticasone nasal spray, Oseltamivir capsules Forms: Return to Work/Inpatient [facility] Referrals: [facility] [Outside] Lilian Kolb MD [Ordering Only Provider] - 11/28/18 8:00 am - Discharge Summary/Plan Comment DC Time >30 min.: No - Patient Data Vitals - Most Recent: Last Vital Signs Temp 36.7 C 11/21/18 08:00 Pulse 76 11/21/18 08:00 Resp 17 11/21/18 08:00 BP 122/58 L 11/21/18 08:00 Pulse Ox 92 L 11/21/18 08:00 Weight - Most Recent: 88.723 kg I&O - Last 24 hours: Intake & Output 11/20/18 11/21/18 11/21/18 22:59 06:59 14:59 Intake Total 1570 700 Output Total 2200 2350 Balance -630 -1650 Lab Results - Last 24 hrs: Laboratory Results - last 24 hr 11/20/18 11/20/18 11/20/18 Range/Units 11:57 15:26 18:12 WBC (4.0-11.0) K/uL RBC (4.50-5.90) M/uL Hgb (13.0-17.0) g/dL Hct (38.0-50.0) % MCV (80.0-98.0) fL MCH (27.0-32.0) pg MCHC (31.0-37.0) g/dL RDW Std Deviation (28.0-62.0) fl RDW Coeff of Demian (11.0-15.0) % Plt Count (150-400) K/uL MPV (7.40-12.00) fL Neut % (Auto) (48.0-80.0) % Lymph % (Auto) (16.0-40.0) % Cross % (Auto) (0.0-15.0) % Eos % (Auto) (0.0-7.0) % Baso % (Auto) (0.0-1.5) % Neut # (Auto) (1.4-5.7) K/uL Lymph # (Auto) (0.6-2.4) K/uL Cross # (Auto) (0.0-0.8) K/uL Eos # (Auto) (0.0-0.7) K/uL Baso # (Auto) (0.0-0.1) K/uL Nucleated RBC % /100WBC Nucleated RBCs # K/uL Sodium (136-148) mmol/L Potassium (3.5-5.1) mmol/L Chloride (98-107) mmol/L Carbon Dioxide (21.0-32.0) mmol/L BUN (7.0-18.0) mg/dL Creatinine (0.8-1.3) mg/dL Est Cr Clr Drug Dosing Estimated GFR (MDRD) ml/min Glucose (74-106) mg/dL POC Glucose 199 H 162 H 178 H (60-110) mg/dL Calcium (8.5-10.1) mg/dL 11/21/18 11/21/18 11/21/18 Range/Units 05:30 06:15 07:16 WBC 21.23 H (4.0-11.0) K/uL RBC 5.13 (4.50-5.90) M/uL Hgb 15.6 (13.0-17.0) g/dL Hct 44.4 (38.0-50.0) % MCV 86.5 (80.0-98.0) fL MCH 30.4 (27.0-32.0) pg MCHC 35.1 (31.0-37.0) g/dL RDW Std Deviation 41.5 (28.0-62.0) fl RDW Coeff of Demian 13 (11.0-15.0) % Plt Count 174 (150-400) K/uL MPV 9.80 (7.40-12.00) fL Neut % (Auto) 49.5 (48.0-80.0) % Lymph % (Auto) 42.1 H (16.0-40.0) % Cross % (Auto) 6.2 (0.0-15.0) % Eos % (Auto) 2.0 (0.0-7.0) % Baso % (Auto) 0.2 (0.0-1.5) % Neut # (Auto) 10.5 H (1.4-5.7) K/uL Lymph # (Auto) 8.9 H (0.6-2.4) K/uL Cross # (Auto) 1.3 H (0.0-0.8) K/uL Eos # (Auto) 0.4 (0.0-0.7) K/uL Baso # (Auto) 0.1 (0.0-0.1) K/uL Nucleated RBC % 0.0 /100WBC Nucleated RBCs # 0 K/uL Sodium 136 (136-148) mmol/L Potassium 4.4 (3.5-5.1) mmol/L Chloride 102 (98-107) mmol/L Carbon Dioxide 28.4 (21.0-32.0) mmol/L BUN 17 (7.0-18.0) mg/dL Creatinine 0.7 L (0.8-1.3) mg/dL Est Cr Clr Drug Dosing TNP Estimated GFR (MDRD) > 60.0 ml/min Glucose 208 H (74-106) mg/dL POC Glucose 190 H (60-110) mg/dL Calcium 9.2 (8.5-10.1) mg/dL 11/21/18 Range/Units 11:18 WBC (4.0-11.0) K/uL RBC (4.50-5.90) M/uL Hgb (13.0-17.0) g/dL Hct (38.0-50.0) % MCV (80.0-98.0) fL MCH (27.0-32.0) pg MCHC (31.0-37.0) g/dL RDW Std Deviation (28.0-62.0) fl RDW Coeff of Demian (11.0-15.0) % Plt Count (150-400) K/uL MPV (7.40-12.00) fL Neut % (Auto) (48.0-80.0) % Lymph % (Auto) (16.0-40.0) % Cross % (Auto) (0.0-15.0) % Eos % (Auto) (0.0-7.0) % Baso % (Auto) (0.0-1.5) % Neut # (Auto) (1.4-5.7) K/uL Lymph # (Auto) (0.6-2.4) K/uL Cross # (Auto) (0.0-0.8) K/uL Eos # (Auto) (0.0-0.7) K/uL Baso # (Auto) (0.0-0.1) K/uL Nucleated RBC % /100WBC Nucleated RBCs # K/uL Sodium (136-148) mmol/L Potassium (3.5-5.1) mmol/L Chloride (98-107) mmol/L Carbon Dioxide (21.0-32.0) mmol/L BUN (7.0-18.0) mg/dL Creatinine (0.8-1.3) mg/dL Est Cr Clr Drug Dosing Estimated GFR (MDRD) ml/min Glucose (74-106) mg/dL POC Glucose 257 H (60-110) mg/dL Calcium (8.5-10.1) mg/dL ANTONIA Results - Last 24 hrs: Microbiology 11/19/18 11:14 Aerobic Blood Culture - Preliminary Blood - Venous - Lab Draw NO GROWTH AFTER 2 DAYS Anaerobic Blood Culture - Preliminary NO GROWTH AFTER 2 DAYS 11/19/18 11:14 Aerobic Blood Culture - Preliminary Blood - Venous NO GROWTH AFTER 2 DAYS Anaerobic Blood Culture - Preliminary NO GROWTH AFTER 2 DAYS Med Orders - Current: Current Medications Acetaminophen (Tylenol) 650 mg PO Q4H PRN PRN Reason: Pain Aspirin (Aspirin) 81 mg PO DAILY [facility] Last Admin: 11/21/18 08:15 Dose: 81 mg Enoxaparin Sodium (Lovenox) 40 mg SUBCUT Q24H [facility] Last Admin: 11/20/18 14:23 Dose: 40 mg Cefepime HCl 1 gm/ Premix 50 mls @ 100 mls/hr IV Q8H [facility] Last Admin: 11/21/18 08:15 Dose: 100 mls/hr Ibuprofen (Motrin) 400 mg PO Q6H PRN PRN Reason: Headache Last Admin: 11/20/18 17:00 Dose: 400 mg Insulin Aspart (Novolog) 0 unit SUBCUT TIDAC [facility]; Protocol Last Admin: 11/21/18 08:15 Dose: 2 unit Omeprazole (Omeprazole) 20 mg PO ACBREAKFAST [facility] Last Admin: 11/21/18 08:15 Dose: 20 mg Ondansetron HCl (Zofran) 4 mg IVPUSH Q4H PRN PRN Reason: Nausea Oseltamivir Phosphate (Tamiflu) 75 mg PO BID [facility] Last Admin: 11/21/18 08:15 Dose: 75 mg Discontinued Medications Atenolol (Tenormin) 100 mg PO DAILY [facility] Sodium Chloride (Normal Saline) 1,000 mls @ 999 mls/hr IV STAT ONE Stop: 11/19/18 12:20 Last Admin: 11/19/18 11:28 Dose: 999 mls/hr Ceftriaxone Sodium/Dextrose 1 (gm/ Premix) 50 mls @ 100 mls/hr IV Q24H [facility] Last Admin: 11/19/18 13:54 Dose: 100 mls/hr Sodium Chloride (Normal Saline) 1,000 mls @ 125 mls/hr IV ASDIRECTED [facility] Last Admin: 11/20/18 06:52 Dose: 125 mls/hr Losartan Potassium (Cozaar) 50 mg PO DAILY [facility] <John Bueno - Last Filed: 11/26/18 14:20> - Patient Data Vitals - Most Recent: Last Vital Signs Temp 36.7 C 11/21/18 08:00 Pulse 76 11/21/18 08:00 Resp 17 11/21/18 08:00 BP 122/58 L 11/21/18 08:00 Pulse Ox 92 L 11/21/18 08:00 Med Orders - Current: Current Medications Discontinued Medications Acetaminophen (Tylenol) 650 mg PO Q4H PRN PRN Reason: Pain Aspirin (Aspirin) 81 mg PO DAILY [facility] Last Admin: 11/21/18 08:15 Dose: 81 mg Atenolol (Tenormin) 100 mg PO DAILY [facility] Enoxaparin Sodium (Lovenox) 40 mg SUBCUT Q24H [facility] Last Admin: 11/20/18 14:23 Dose: 40 mg Sodium Chloride (Normal Saline) 1,000 mls @ 999 mls/hr IV STAT ONE Stop: 11/19/18 12:20 Last Admin: 11/19/18 11:28 Dose: 999 mls/hr Ceftriaxone Sodium/Dextrose 1 (gm/ Premix) 50 mls @ 100 mls/hr IV Q24H [facility] Last Admin: 11/19/18 13:54 Dose: 100 mls/hr Sodium Chloride (Normal Saline) 1,000 mls @ 125 mls/hr IV ASDIRECTED [facility] Last Admin: 11/20/18 06:52 Dose: 125 mls/hr Cefepime HCl 1 gm/ Premix 50 mls @ 100 mls/hr IV Q8H [facility] Last Admin: 11/21/18 08:15 Dose: 100 mls/hr Ibuprofen (Motrin) 400 mg PO Q6H PRN PRN Reason: Headache Last Admin: 11/20/18 17:00 Dose: 400 mg Insulin Aspart (Novolog) 0 unit SUBCUT TIDAC [facility]; Protocol Last Admin: 11/21/18 11:58 Dose: 3 unit Losartan Potassium (Cozaar) 50 mg PO DAILY [facility] Omeprazole (Omeprazole) 20 mg PO ACBREAKFAST [facility] Last Admin: 11/21/18 08:15 Dose: 20 mg Ondansetron HCl (Zofran) 4 mg IVPUSH Q4H PRN PRN Reason: Nausea Oseltamivir Phosphate (Tamiflu) 75 mg PO BID [facility] Last Admin: 11/21/18 08:15 Dose: 75 mg - Free Text/Narrative Note: I have seen and evaluated the patient. I have discussed findings and treatment plan with the resident. I agree with the assessment and plan outlined in the following note.
== END 2018-11-21 12:15 | disposition home or self-care (01) ==
LOC: MW.ED 09:59 → MW.MS 13:19
PROVIDERS: ADMIT Internal Medicine; ATTEND Internal Medicine
DX: D72.828 Other elevated white blood cell count (principal); C91.10 Chronic lymphocytic leukemia of B-cell type not having achieved remission; I10 Essential (primary) hypertension; E11.9 Type 2 diabetes mellitus without complications; E78.00 Pure hypercholesterolemia, unspecified; J01.90 Acute sinusitis, unspecified; K21.9 Gastro-esophageal reflux disease without esophagitis; R17 Unspecified jaundice; R91.1 Solitary pulmonary nodule; Z88.0 Allergy status to penicillin; Z79.82 Long term (current) use of aspirin; Z79.84 Long term (current) use of oral hypoglycemic drugs; Z79.51 Long term (current) use of inhaled steroids; Z79.899 Other long term (current) drug therapy
CPT/HCPCS: 36415; 71046; 71250; 76700; 80048; 80053; 81001; 82962; 85025; 87040; 87804; 88104; 96361; 96365; 96366; 96367; 96372; 96376; 99285; A9270; G0378; J0692; J0696; J1650; J1815; J7040